=== PATIENT | female | born 1995 | race Caucasian/White ===

== ENCOUNTER 2017-12-14 17:31 | Inpatient (IN) ==
[2017-12-14] MEDS ORDERED: Sodium Chloride 0.9% 1,000 ML PRIMARY IV ONE (17:44)
[2017-12-14 17:54] LABS: BASOPHILS # (AUTO) 0.05 10*3/UL; BASOPHILS % (AUTO) 0.5 % (0-1); EOSINOPHILS # (AUTO) 0.78 10*3/UL; EOSINOPHILS % (AUTO) 7.7 % (0-8); Hematocrit [HCT] 42.3 % (37.0-47.0); Hemoglobin [HGB] 14.3 g/dL (12.0-16.0); LYMPHOCYTES # (AUTO) 2.73 10*3/uL; MEAN CORPUSCULAR HEMOGLOBIN 30.4 PG (27-31); MEAN CORPUSCULAR HGB CONC 33.8 g/dL (33-37); MEAN CORPUSCULAR VOLUME 89.8 FL (81-99); MEAN PLATELET VOLUME 9.9 FL (7.4-12.2); MONOCYTES # (AUTO) 0.64 10*3/UL (0.3-0.8); MONOCYTES % (AUTO) 6.3 % (5-15); NEUTROPHILS # (AUTO) 5.96 10*3/UL; NEUTROPHILS % (AUTO) 58.6 % (50-80); RED BLOOD COUNT 4.71 10^6/uL (4.20-5.40)
[2017-12-14 17:56] LABS: PLATELET MORPHOLOGY COMMENT NORMAL MORPHOLOGY (NORM); RBC MORPHOLOGY COMMENT NORMAL MORPHOLOGY (NORM); WBC MORPHOLOGY COMMENT NORMAL MORPHOLOGY (NORM)
--- NOTE | 2017-12-14 17:59 | EKG ---
[address] [address] Measurements Intervals [place] Rate: 88 P: 64 OK: 131 QRS: 68 QRSD: 82 T: 36 QT: 382 QTc: 428 Interpretive Statements SINUS RHYTHM MODERATE ST DEPRESSION [0.05+ mV ST DEPRESSION] No previous ECG available for comparison Electronically Signed On 12-15-17 08:10:02 MDT by Fly Padilla MD [email or web address]
[2017-12-14 18:03] LABS: VENOUS PH 7.26 (7.32-7.42)
[2017-12-14 18:04] LABS: BLOOD UREA NITROGEN 16 mg/dL (7-22); BUN/CREATININE RATIO 17.77 (6-20)
[2017-12-14 18:52] LABS: VENOUS PH 7.3 (7.32-7.42)
--- NOTE | 2017-12-14 18:52 | PDOC ---
Dyspnea HPI - General Chief Complaint: Respiratory Complaint Stated Complaint: ashma exacerbation Date Seen by Provider: 12/14/17 Time Seen by Provider: 17:45 Source: POSITIVE: Patient, EMS Exam Limitations: POSITIVE: No limitations Treatment Prior to Arrival: REPORTS: Other (The patient had a DuoNeb and 2 albuterol neb treatments in route. She received 125 mg of Solu-Medrol IV in route She also received subcutaneous epinephrine 0.3 mg in route.) Nurse's Notes Reviewed & Considered: Yes EMS Report Reviewed & Considered: Verbal - History of Present Illness Initial Comments: The patient is a 22-year-old female who is brought to the emergency department by ambulance with shortness of breath. She has a history of asthma which was diagnosed only last March. She states that she normally just uses an albuterol inhaler as needed. She was apparently using some type of oven wet cleaner machine when she had fairly sudden onset of increased wheezing and shortness of breath. This was much worse than any previous asthma attack that she has ever had. She subsequently called EMS. When they arrived the patient was in significant distress and had oxygen saturations in the mid 70s on room air. She also appeared to have cyanosis. She was given a duo neb and placed on oxygen. She had only minimal improvement in subsequently was given subcutaneous epinephrine 0.3 mg and given 2 more albuterol neb treatments in route. She was also given 125 mg of Solu-Medrol in route. She is feeling somewhat better on arrival however she still has some tightness in her chest. She denies any recent illness. She has not had any increased cough, sore throat , fever, pain or swelling in her extremities. She does not have any other significant medical history other than asthma and environmental allergies. She does take Singulair daily. - Patient Home Medications Home Medications: Home Medications Albuterol 17 gm INH PRN PRN 12/14/17 - Patient Allergies Allergies/Adverse Reactions: Allergies 3 Allergy/AdvReac Type Severity Reaction Status Date / Time amoxicillin [Amoxicillin] Allergy Intermediate HIVES Verified 12/14/17 17:35 Penicillins Allergy Intermediate HIVES Verified 12/14/17 17:35 Past Medical History - heen HEENT History: Denies History Cardiovascular History: Denies History Respiratory History: Denies History Gastrointestinal History: Denies History Genitourinary History: Denies History Endocrine History: Denies History Musculoskeletal History: Denies History Prosthesis or Implant: No Neurological History: Denies History Blood Disorders: Denies History Psychiatric History: Denies History History of Sexually Transmitted Diseases: No In Past Year Been Physically Harmed or Verbally Threatened: No History of MDRO: No History of Other Communicable Diseases: No Tobacco Use: Never Smoker Alcohol Use: None In the Past 12 Months, Have Used or Abuse Any Substance: None Previous Surgical History: Yes Anesthesia Reactions: No Malignant Hyperthermia: No Significant Family History: No pertinent family hx Past Medical History Reviewed: Reviewed - No Changes ROS - Limitations ROS Limitations: No Limitations Constitution: DENIES: Chills, Fever Cardiovascular: REPORTS: Chest Pain Respiratory: REPORTS: Hurts To Breathe (She reports tightness and pain in her chest), Shortness Of Breath, Wheezing. DENIES: Cough Non Productive, Cough Productive Neurological: REPORTS: Denies Neuro Symptoms Gastrointestinal: REPORTS: Denies GI Symptoms Musculoskeletal: REPORTS: Denies MS Symptoms Genitourinary: REPORTS: Denies Symptoms Eyes: REPORTS: Denies Symptoms ENT: REPORTS: Denies Symptoms Skin: DENIES: Rash Dyspnea Physical Exam - General Appearance General Appearance: REPORTS: Alert, Cooperative, No Acute Distress - HEENT HEENT: POSITIVE: Head Inspection Nml, Eyes Inspection Nml, Ears Inspection Nml, Nose Inspection Nml, Pharynx Inspect. Nml, PERRL, EOMI - Respiratory Respiratory: REPORTS: Speaks Full Sentences, Other (Examination of her lungs reveals diminished breath sounds bilaterally, she does have diffuse expiratory wheezes, respirations are unlabored on arrival) - Cardiovascular Cardiovascular: REPORTS: Regular Rate and Rhythm, Heart Sounds Normal Peripheral Pulses: Dorsalis-pedis (R): 2+, Dorsalis-pedis (L): 2+ - Abdomen Abdomen: Soft: (All Quadrants), Denies Tenderness: (All Quadrants), No Distention: (All Quadrants) - Skin Skin: REPORTS: Intact, No Rash - Extremities Extremity: Normal ROM: (All Extremities), Normal Inspection: (All Extremities) - Neurological / Psychological Neurological: POSITIVE: Oriented X3, Motor Normal, Sensation Normal Dyspnea Progress - Results Reviewed by me Xrays/CTs/US Reviewed by me: Yes Radiology Findings: Chest x-ray shows some mild hyperinflation, no infiltrates, cardiac size is normal Lab Results Reviewed by Me: Yes CBC and BMP: 07/12/18 17:49 12/14/17 17:49 Lab Results:: Laboratory Results 3 12/14/17 12/14/17 12/14/17 17:44 17:49 17:49 WBC 10.17 RBC 4.71 Hgb 14.3 Hct 42.3 MCV 89.8 MCH 30.4 MCHC 33.8 RDW Std Deviation 43.8 RDW Coeff of Raul 13.6 Plt Count 291 MPV 9.9 Immature Gran % (Auto) 0.1 Neut % (Auto) 58.6 Lymph % (Auto) 26.8 [place] % (Auto) 6.3 Eos % (Auto) 7.7 Baso % (Auto) 0.5 Immature Gran # (Auto) 0.01 Neut # (Auto) 5.96 Lymph # (Auto) 2.73 [place] # (Auto) 0.64 Eos # (Auto) 0.78 Baso # (Auto) 0.05 WBC Morphology Comment Normal morphology Plt Morphology Comment Normal morphology RBC Morph Comment Normal morphology VBG pH 7.26 L VBG pCO2 55 VBG HCO3 25 VBG Base Excess -2 Sodium 139 Potassium 3.9 Chloride 104 Carbon Dioxide 24 Anion Gap 11 BUN 16 Creatinine 0.9 Estimated GFR > 60 BUN/Creatinine Ratio 17.77 Glucose 170 H Calculated Osmolality 292.0 Lactic Acid Calcium 8.3 L Magnesium 1.9 Total Bilirubin 0.2 L AST 28 ALT 29 Alkaline Phosphatase 94 Troponin I NT-Pro-B Natriuret Pep 63.4 Total Protein 6.9 Albumin 4.0 Globulin 2.8 Albumin/Globulin Ratio 1.40 Serum HCG, Qual 3 12/14/17 12/14/17 12/14/17 17:49 17:49 17:49 WBC RBC Hgb Hct MCV MCH MCHC RDW Std Deviation RDW Coeff of Raul Plt Count MPV Immature Gran % (Auto) Neut % (Auto) Lymph % (Auto) [place] % (Auto) Eos % (Auto) Baso % (Auto) Immature Gran # (Auto) Neut # (Auto) Lymph # (Auto) [place] # (Auto) Eos # (Auto) Baso # (Auto) WBC Morphology Comment Plt Morphology Comment RBC Morph Comment VBG pH VBG pCO2 VBG HCO3 VBG Base Excess Sodium Potassium Chloride Carbon Dioxide Anion Gap BUN Creatinine Estimated GFR BUN/Creatinine Ratio Glucose Calculated Osmolality Lactic Acid 1.4 Calcium Magnesium Total Bilirubin AST ALT Alkaline Phosphatase Troponin I < 0.012 NT-Pro-B Natriuret Pep Total Protein Albumin Globulin Albumin/Globulin Ratio Serum HCG, Qual Negative 3 12/14/17 18:42 WBC RBC Hgb Hct MCV MCH MCHC RDW Std Deviation RDW Coeff of Raul Plt Count MPV Immature Gran % (Auto) Neut % (Auto) Lymph % (Auto) [place] % (Auto) Eos % (Auto) Baso % (Auto) Immature Gran # (Auto) Neut # (Auto) Lymph # (Auto) [place] # (Auto) Eos # (Auto) Baso # (Auto) WBC Morphology Comment Plt Morphology Comment RBC Morph Comment VBG pH 7.30 L VBG pCO2 52 VBG HCO3 25 VBG Base Excess -1 Sodium Potassium Chloride Carbon Dioxide Anion Gap BUN Creatinine Estimated GFR BUN/Creatinine Ratio Glucose Calculated Osmolality Lactic Acid Calcium Magnesium Total Bilirubin AST ALT Alkaline Phosphatase Troponin I NT-Pro-B Natriuret Pep Total Protein Albumin Globulin Albumin/Globulin Ratio Serum HCG, Qual EKG Interpreted/Reviewed By Me:: Yes EKG Interpretation:: POSITIVE: Other (EKG shows sinus tachycardia with a rate of 129, no acute ST segment or T-wave changes) - Patient's Progress MDM / ED Course: The patient had received Solu-Medrol 125 mg IV as well as subcutaneous epinephrine 0.3 mg and DuoNeb with 2 albuterol neb treatments in route. She seemed to be somewhat better on arrival. Initial venous blood gas showed a pH of 7.26 with PCO2 of 55. Her chest x-ray shows some mild hyperinflation with no other acute findings. Her lab work is otherwise essentially unremarkable. test is negative. She seemed to be doing clinically better, despite her respiratory acidosis. Decision was made to continue to monitor. Repeat venous blood gas revealed an improving pH 7.299 with a PCO2 of 51.5. She does have significant asthma exacerbation with associated hypoxia and respiratory acidosis. He was made to admit and Dr. Goodrich has agreed to admit the patient. - Consult Counseled: POSITIVE: Patient, Family, RE: Lab Results, RE: Radiology Results, RE : DX, RE: Need for F/U Patient Care Time - Estimated PCT Patient Care Time (In Minutes): 40 Vital Signs - Recent Vital Signs Vital Signs: Vital Signs (Last 8 hours) Temp Pulse Pulse Pulse Resp BP Pulse Ox 12/15/17 01:34 80 18 12/15/17 01:00 96.9 F 83 18 105/66 97 12/15/17 00:00 107 H 14 111/71 96 12/14/17 23:00 89 101 H 12 99/57 96 12/14/17 22:00 79 12 99/57 94 12/14/17 21:01 101 H 19 12/14/17 21:00 97 19 102/59 96 12/14/17 20:42 86 14 97 12/14/17 20:41 80 14 96 12/14/17 20:32 96.8 F 86 14 105/58 96 - VS Reviewed Vital Signs Reviewed: Yes Discharge Clinical Impression: Asthma exacerbation, Respiratory acidosis Discharge Disposition: Admit to Inpatient Condition: Fair Date Decision to Admit to Inpatient: 12/14/17 Time Decision to Admit to Inpatient: 19:00
[2017-12-14] MEDS ORDERED: ALBUTEROL SULFATE 2.5 MG/3 ML NEB PRN (20:16)
[2017-12-14] MEDS ORDERED: LIDOCAINE W/ SODIUM BICARB 0.5 ML SYR SUBD PRN (20:16)
--- NOTE | 2017-12-14 20:28 | PDOC ---
HPI - History of Present Illness Date of Service: 12/14/17 Time of Service: 20:00 Chief Complaint: Shortness of breath that started today History of Present Illness: This is a 22 years old female with medical history significant for history of asthma was diagnosed March last year was brought to the hospital because of shortness of breath. She said she was at work and she used some kind of for chemical swimming pool cleaner and then after that she started to have increasing shortness of breath and wheezing she used her inhaler but continued to feel short of breath the EMS were called. By the time the EMS arrived she was in significant distress her oxygen saturation were in the low 70s they gave her a DuoNeb and placed on oxygen then they gave epinephrine and 2 more albuterol and brought her to the ER. They did also give her Solu-Medrol en route. By the time she came into the ER she felt better. She did have a venous blood gas which showed the CO2 of 55 and the pH of 7.26 initially after that she had another venous blood gas showed a PCO2 of 52 and a pH of 7.3 she was admitted to the hospital. By time she came into the ICU she feels a lot better compared to when she came in. She did say that she had also some cough with no fever and there is white phlegm production. Past Medical History Medical History: 1. Asthma diagnosed March last Family History: Reviewed an Not Pertinent Tobacco Use: Never Smoker Do you dip or chew tobacco: Yes (1 can/5 days) In the Past 12 Months, Have Used or Abuse Any of the Following Substance: None Alcohol Use: None Medication / Allergies Home Medications: Home Medications 3 Medication Instructions Recorded Confirmed Type Albuterol 17 gm INH PRN PRN 12/14/17 12/14/17 History Allergies/Adverse Reactions: Allergies 3 Allergy/AdvReac Type Severity Reaction Status Date / Time amoxicillin [Amoxicillin] Allergy Intermediate HIVES Verified 12/14/17 17:35 Penicillins Allergy Intermediate HIVES Verified 12/14/17 17:35 Review of Systems - Review of Systems All Systems: Reviewed & No Additional Complaints Except as Stated Exam - Vitals Vital Signs: Vital Signs Temperature 95.5 F Temperature Source Temporal Artery Scan Pulse Rate [Pulse Oximeter] 97 Respiratory Rate 16 Blood Pressure [Left Arm] 135/97 Pulse Ox 100 Oxygen Delivery Method Room Air Height 5 ft 9 in Weight 177 lb 8 oz - General General Appearance: No Acute Distress, Cooperative - Head Head Exam: Normal Inspection - Eye Eye Exam: POSITIVE: Normal Appearance - ENT ENT Exam: POSITIVE: Normal Exam - Neck Neck Exam: Normal Inspection - Respiratory Additional Respiratory Exam Details: Decreased air entry otherwise clear. - Cardiovascular Cardiovascular Exam: POSITIVE: RRR - GI/Abdominal GI/Abdominal Exam: POSITIVE: Normal Bowel Sounds, Non Tender, Non Distended, Soft, No Organomegaly - Rectal Rectal Exam: POSITIVE: Deferred - External Exam: POSITIVE: Deferred Exam: POSITIVE: Deferred - Extremities Extremities Exam: POSITIVE: Normal Inspection - Neurological Neurological Exam: POSITIVE: Alert, Oriented x 3, CN II-XII Intact, No Facial Droop, Speech Intact / Clear, Moves All Extremities Equally - Psychiatric Psychiatric Exam: POSITIVE: Normal Affect Results - Labs CBC and BMP: 12/14/17 17:49 12/14/17 17:49 - EKG Data -: EKG Interpreted by Me Rate: Normal EKG Shows Normal: Sinus Rhythm (some ST depression in the inferior leads) - Imaging Status: Report Reviewed by Me (chest X ray No acute disease.) Assessment and Plan - Patient Problems (1) Asthma exacerbation Current Visit: Yes Status: Acute Comment: I think will continue with steriod continue breathing treatment. Will repeat her venous blood gas in the morning. She seemed to be much improved compared to when she came in. The EKG that she had when she came in did show some ST depression probably from the hypoxia. Code(s): J45.901 - Unspecified asthma with (acute) exacerbation
[2017-12-14] MEDS: IPRATROPIUM/ALBUTEROL SULFATE 3 ML NEB NEB SCH (20:41)
[2017-12-14] MEDS: methylPREDNISolone 125 MG/2 ML VIAL IVP SCH (21:08)
--- NOTE | 2017-12-14 21:14 | DI ---
XR CXR 1VW,12/14/2017 5:44 PM: Clinical History: Hypoxia. Previous Exam: None at this facility. Findings: A single frontal radiograph of the chest is obtained, and demonstrates clear lungs. The cardiac media stinum and bony thorax are unremarkable. Impression: No acute disease.
[2017-12-15] MEDS: methylPREDNISolone 125 MG/2 ML VIAL IVP SCH (04:37)
[2017-12-15 05:06] VITALS: RESP 16
[2017-12-15] MEDS: IPRATROPIUM/ALBUTEROL SULFATE 3 ML NEB NEB SCH (06:27)
[2017-12-15 07:14] VITALS: TEMP 97
[2017-12-15 07:33] LABS: VENOUS PH 7.51 (7.32-7.42)
[2017-12-15 08:09] VITALS: O2SAT 97
--- NOTE | 2017-12-15 08:43 | EKG ---
[address] [address] Measurements Intervals [place] Rate: 68 P: 58 RI: 124 QRS: 70 QRSD: 94 T: 67 QT: 467 QTc: 484 Interpretive Statements SINUS RHYTHM WITH SINUS ARRHYTHMIA ST DEVIATION AND MODERATE T-WAVE ABNORMALITY, CONSIDER ANTERIOR ISCHEMIA [-0.1+ mV T WAVE IN V3/V4] No previous ECG available for comparison Electronically Signed On 12-15-17 10:35:00 MDT by Fly Padilla MD [email or web address]
--- NOTE | 2017-12-15 08:57 | DCSUMMARY ---
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 History of asthma Hospital course This is a 22 years old female with medical history significant for history of asthma who was diagnosed back in March last year who presented to the hospital because of shortness of breath. She said that she was at work and she used some kind of chemical marble cleaner and then after that she started to have shortness of breath and wheezing she used her inhaler but continued to feel short of breath and EMS were called. By the time the EMS arrived she was in significant distress and oxygen saturation were in the low 70s they gave her a DuoNeb and placed her on oxygen and they gave epinephrine and 2 more albuterol and brought her to the ER. She did get soluMedrol en route. By the time she came into the ER she was feeling better. She did have a venous blood gas which showed a CO2 of 55 and a pH of 7.26 initially after that she had another venous blood gas showed a PCO2 of 52 and a pH of 7.3 and she was admitted to the hospital. By the time she came into the ICU and when I saw her she felt a lot better compared to when she came in. She did report some cough when the white phlegm production but no fever. She denied chest pain to me yesterday. We did put her on breathing treatment and steroid. I did notice that's when she came in she did have some ST depression in the inferior leads her troponin was negative when she came in also her BNP was normal. I decided to repeat the troponin the next day. Clinically she said she feel a lot better she is back to her usual self and she denied complaint. However the troponin came back higher at 18.6. I did repeat the EKG which showed changes compared to one that she had from yesterday I don't see the ST depression in the inferior lead there is T inversion in V1, V2 and terminal negativity in the T-wave in V3. Because of the finding I did speak with the stave grader Dr. Marquez he accepted the patient for transfer. He suggested aspirin and starting heparin. will check her PTT and put on heparin drip. I did Explain that to the patient and she agreed on transfer. Laboratory Results 07/12/18 07/12/18 07/12/18 Range/Units 17:44 17:49 17:49 WBC 10.17 (4.8-10.8) 10^3/uL RBC 4.71 (4.20-5.40) 10^6/uL Hgb 14.3 (12.0-16.0) g/dL Hct 42.3 (37.0-47.0) % MCV 89.8 (81-99) FL MCH 30.4 (27-31) PG MCHC 33.8 (33-37) g/dL RDW Std Deviation 43.8 (39-50) fL RDW Coeff of Raul 13.6 (11.5-14.5) % Plt Count 291 (140-350) 10*3/uL MPV 9.9 (7.4-12.2) FL Immature Gran % (Auto) 0.1 (0-5) % Neut % (Auto) 58.6 (50-80) % Lymph % (Auto) 26.8 (10-50) % [place] % (Auto) 6.3 (5-15) % Eos % (Auto) 7.7 (0-8) % Baso % (Auto) 0.5 (0-1) % Immature Gran # (Auto) 0.01 10*3/UL Neut # (Auto) 5.96 10*3/UL Lymph # (Auto) 2.73 10*3/uL [place] # (Auto) 0.64 (0.3-0.8) 10*3/UL Eos # (Auto) 0.78 10*3/UL Baso # (Auto) 0.05 10*3/UL WBC Morphology Comment Normal morphology (NORM) Plt Morphology Comment Normal morphology (NORM) RBC Morph Comment Normal morphology (NORM) VBG pH 7.26 L (7.32-7.42) VBG pCO2 55 (45-55) mmHg VBG HCO3 25 (22-26) mmol/L VBG Base Excess -2 (-2-2) MMOL/L Sodium 139 (135-145) meq/L Potassium 3.9 (3.8-5.2) meq/L Chloride 104 (98-112) meq/L Carbon Dioxide 24 (23-33) meq/L Anion Gap 11 (5-20) BUN 16 (7-22) mg/dL Creatinine 0.9 (0.50-1.20) mg/dL Estimated GFR > 60 (>60 ml/min/1.73m(2)) BUN/Creatinine Ratio 17.77 (6-20) Glucose 170 H (78-110) mg/dL Calculated Osmolality 292.0 (267-292) mOsm/kg Lactic Acid (0.70-2.10) MMOL/L Calcium 8.3 L (8.7-10.7) mg/dL Magnesium 1.9 (1.6-2.4) mg/dL Total Bilirubin 0.2 L (0.3-1.2) mg/dL AST 28 (8-39) IU/L ALT 29 (9-52) IU/L Alkaline Phosphatase 94 (38-126) IU/L Troponin I (< 0.040) ng/mL NT-Pro-B Natriuret Pep 63.4 (0-125) PG/ML Total Protein 6.9 (6.1-8.0) g/dL Albumin 4.0 (3.5-4.8) g/dL Globulin 2.8 (2.50-4.10) g/dL Albumin/Globulin Ratio 1.40 (1.3-2.0) mg/g Serum HCG, Qual 12/14/17 12/14/17 12/14/17 Range/Units 17:49 17:49 17:49 WBC (4.8-10.8) 10^3/uL RBC (4.20-5.40) 10^6/uL Hgb (12.0-16.0) g/dL Hct (37.0-47.0) % MCV (81-99) FL MCH (27-31) PG MCHC (33-37) g/dL RDW Std Deviation (39-50) fL RDW Coeff of Raul (11.5-14.5) % Plt Count (140-350) 10*3/uL MPV (7.4-12.2) FL Immature Gran % (Auto) (0-5) % Neut % (Auto) (50-80) % Lymph % (Auto) (10-50) % [place] % (Auto) (5-15) % Eos % (Auto) (0-8) % Baso % (Auto) (0-1) % Immature Gran # (Auto) 10*3/UL Neut # (Auto) 10*3/UL Lymph # (Auto) 10*3/uL [place] # (Auto) (0.3-0.8) 10*3/UL Eos # (Auto) 10*3/UL Baso # (Auto) 10*3/UL WBC Morphology Comment (NORM) Plt Morphology Comment (NORM) RBC Morph Comment (NORM) VBG pH (7.32-7.42) VBG pCO2 (45-55) mmHg VBG HCO3 (22-26) mmol/L VBG Base Excess (-2-2) MMOL/L Sodium (135-145) meq/L Potassium (3.8-5.2) meq/L Chloride (98-112) meq/L Carbon Dioxide (23-33) meq/L Anion Gap (5-20) BUN (7-22) mg/dL Creatinine (0.50-1.20) mg/dL Estimated GFR (>60 ml/min/1.73m(2)) BUN/Creatinine Ratio (6-20) Glucose (78-110) mg/dL Calculated Osmolality (267-292) mOsm/kg Lactic Acid 1.4 (0.70-2.10) MMOL/L Calcium (8.7-10.7) mg/dL Magnesium (1.6-2.4) mg/dL Total Bilirubin (0.3-1.2) mg/dL AST (8-39) IU/L ALT (9-52) IU/L Alkaline Phosphatase (38-126) IU/L Troponin I < 0.012 (< 0.040) ng/mL NT-Pro-B Natriuret Pep (0-125) PG/ML Total Protein (6.1-8.0) g/dL Albumin (3.5-4.8) g/dL Globulin (2.50-4.10) g/dL Albumin/Globulin Ratio (1.3-2.0) mg/g Serum HCG, Qual Negative 12/14/17 12/15/17 12/15/17 Range/Units 18:42 07:09 07:20 WBC (4.8-10.8) 10^3/uL RBC (4.20-5.40) 10^6/uL Hgb (12.0-16.0) g/dL Hct (37.0-47.0) % MCV (81-99) FL MCH (27-31) PG MCHC (33-37) g/dL RDW Std Deviation (39-50) fL RDW Coeff of Raul (11.5-14.5) % Plt Count (140-350) 10*3/uL MPV (7.4-12.2) FL Immature Gran % (Auto) (0-5) % Neut % (Auto) (50-80) % Lymph % (Auto) (10-50) % [place] % (Auto) (5-15) % Eos % (Auto) (0-8) % Baso % (Auto) (0-1) % Immature Gran # (Auto) 10*3/UL Neut # (Auto) 10*3/UL Lymph # (Auto) 10*3/uL [place] # (Auto) (0.3-0.8) 10*3/UL Eos # (Auto) 10*3/UL Baso # (Auto) 10*3/UL WBC Morphology Comment (NORM) Plt Morphology Comment (NORM) RBC Morph Comment (NORM) VBG pH 7.30 L 7.51 H (7.32-7.42) VBG pCO2 52 21 L (45-55) mmHg VBG HCO3 25 17 L (22-26) mmol/L VBG Base Excess -1 -6 L (-2-2) MMOL/L Sodium (135-145) meq/L Potassium (3.8-5.2) meq/L Chloride (98-112) meq/L Carbon Dioxide (23-33) meq/L Anion Gap (5-20) BUN (7-22) mg/dL Creatinine (0.50-1.20) mg/dL Estimated GFR (>60 ml/min/1.73m(2)) BUN/Creatinine Ratio (6-20) Glucose (78-110) mg/dL Calculated Osmolality (267-292) mOsm/kg Lactic Acid (0.70-2.10) MMOL/L Calcium (8.7-10.7) mg/dL Magnesium (1.6-2.4) mg/dL Total Bilirubin (0.3-1.2) mg/dL AST (8-39) IU/L ALT (9-52) IU/L Alkaline Phosphatase (38-126) IU/L Troponin I 18.600 H* (< 0.040) ng/mL NT-Pro-B Natriuret Pep (0-125) PG/ML Total Protein (6.1-8.0) g/dL Albumin (3.5-4.8) g/dL Globulin (2.50-4.10) g/dL Albumin/Globulin Ratio (1.3-2.0) mg/g Serum HCG, Qual Transfer instructions Diet regular Activity bedrest Medication Active Medications Generic Name Dose Route Start Last Admin Trade Name Freq PRN Reason Stop Dose Admin Albuterol Sulfate 2.5 mg 12/14/17 20:16 Albuterol Neb Soln 0.083% NEB Q1H PRN Shortness of Breath Aspirin 325 mg 12/15/17 09:00 12/15/17 09:06 Aspirin Ec PO Not Given DAILY [facility] Aspirin 324 mg 12/15/17 09:06 12/15/17 09:07 Aspirin Chewable Tab PO 12/15/17 09:07 324 mg ONCE ONE Administration Heparin Sodium/Dextrose 25,000 unit in 500 mls @ 19.323 mls/hr 12/15/17 09:00 Heparin (Premix) IV .Per Protocol [facility] Protocol 12 UNIT/KG/HR Lidocaine HCl 0.5 ml 12/14/17 20:16 Lidocaine Buffered Inj SUBD ONCE PRN IV Starts Follow-up per [facility] post discharge Condition at transfer was stable for transfer Exam - Vitals Vital Signs: Vital Signs Temperature 97.0 F Temperature Source Temporal Artery Scan Pulse Rate [Telemetry] 105 Pulse Rate [Pulse Oximeter] 102 Pulse Rate 94 Respiratory Rate 16 Blood Pressure [Right Arm] 118/64 Blood Pressure [Left Arm] 135/97 Blood Pressure 110/69 Pulse Ox 97 Oxygen Delivery Method Room Air Height 5 ft 9 in Weight 177 lb 8 oz Patient Problems - Patient Problem List (1) Asthma exacerbation Status: Acute Code(s): J45.901 - Unspecified asthma with (acute) exacerbation Category: Medical
[2017-12-15] MEDS ORDERED: HEPARIN 5000 UNIT/1 ML ONE (09:00)
[2017-12-15] MEDS ORDERED: Heparin Drip 25,000 UNIT/500 ML BAG IV SCH (09:00)
[2017-12-15] MEDS ORDERED: ASPIRIN 325 MG EC TABLET PO SCH (09:00)
[2017-12-15] MEDS ORDERED: ASPIRIN 81 MG (BABY) CHEWABLE TABLET ONE (09:00)
[2017-12-15] MEDS ORDERED: ASPIRIN 81 MG (BABY) CHEWABLE TABLET PO ONE (09:06)
[2017-12-15 09:17] VITALS: BP 124/76
[2017-12-15 09:33] LABS: BASOPHILS # (AUTO) 0.01 10*3/UL; BASOPHILS % (AUTO) 0.1 % (0-1); EOSINOPHILS # (AUTO) 0.05 10*3/UL; EOSINOPHILS % (AUTO) 0.5 % (0-8); MEAN CORPUSCULAR HEMOGLOBIN 30.5 PG (27-31); MEAN CORPUSCULAR HGB CONC 34.1 g/dL (33-37); MEAN CORPUSCULAR VOLUME 89.4 FL (81-99); MEAN PLATELET VOLUME 10.4 FL (7.4-12.2); MONOCYTES # (AUTO) 0.19 10*3/UL (0.3-0.8); MONOCYTES % (AUTO) 1.9 % (5-15); NEUTROPHILS # (AUTO) 9.25 10*3/UL; NEUTROPHILS % (AUTO) 91.4 % (50-80); RED BLOOD COUNT 4.92 10^6/uL (4.20-5.40)
[2017-12-15] MEDS ORDERED: HEPARIN 5000 UNIT/1 ML IV ONE (09:37)
[2017-12-15 09:44] LABS: BLOOD UREA NITROGEN 13 mg/dL (7-22); BUN/CREATININE RATIO 18.57 (6-20); SERUM ALBUMIN 4.2 g/dL (3.5-4.8)
[2017-12-15 09:53] LABS: PLATELET MORPHOLOGY COMMENT NORMAL MORPHOLOGY (NORM); RBC MORPHOLOGY COMMENT NORMAL MORPHOLOGY (NORM); WBC MORPHOLOGY COMMENT NORMAL MORPHOLOGY (NORM)
== END 2017-12-15 09:44 | disposition short-term general hospital (02) | DRG 202 ==
LOC: ER 17:31 → ICU 19:04
PROVIDERS: ADMIT Internal Medicine; ATTEND Internal Medicine